=== PATIENT | female | born 1995 | race Caucasian/White ===

== ENCOUNTER 2016-09-07 21:17 | Emergency (ER) | payer OTHER ==
--- NOTE | 2016-09-07 22:49 | UCPHY ---
H & P Time Seen by Provider: 09/07/16 22:18 Patient Type: Established HPI/ROS: HPI Head injury. 21-year-old female by private vehicle. She reports that she was drinking alcohol last night. She reports that sometimes when she drinks alcohol she gets up in the middle of the night to go to the bathroom and she will get lightheaded when she stands. She reports that this has happened to her many times in the past. She reports that she became lightheaded when she stood up to go the bathroom and she stumbled and thinks she may have hit the left side of her skull just behind the left ear on a doorway corner on her bed. She reports having a bruise to this area. She denies any significant headache. No neck pain. She has not had any confusion. She denies any palpitations, chest pain, shortness of breath, loss of sensation or weakness in her extremities. No other complaints. She has no significant past medical history other that noted above. She is not on any anticoagulant or antiplatelet medications. ROS: Constitutional: No fever, no chills. No weakness. Eyes: No discharge. No changes in vision. Respiratory: No cough. No shortness of breath. Cardiac: No chest pain, no palpitations. Gastrointestinal: No abdominal pain, no vomiting, no diarrhea. Musculoskeletal: No back pain. No neck pain. No extremity pain. Skin: No rashes. As above. Neurological: No headache. No focal weakness or altered sensation. Past medical history: As above. Social history: Here by herself. Lives with her grandmother. Physical Exam: General Appearance: Alert, no distress. This patient is responding to questions appropriately and in full sentences. This patient appears well- hydrated and well-nourished. Head: Normocephalic atraumatic except for a faint area of ecchymosis just posterior to the left ear at the base of the skull. It is not significantly tender on palpation. There is no crepitus or bony step-off or deformity noted on palpation of this area.. Face: Facial bones are stable on palpation. Eyes: Pupils equal and round and reactive to light, no pallor or injection. No lid erythema or edema. ENT, Mouth: Mucous membranes moist. Dentition is intact. No malocclusion of the jaw. No tongue lacerations or abrasions. Pharynx is clear. The bilateral nasal canals are clear. No septal hematoma. No hemotympanum on speculum examination of both ears. Respiratory: There are no retractions, lungs are clear to auscultation with good air movement bilaterally. Chest wall is stable to AP and lateral palpation. Cardiovascular: Regular rate and rhythm. No murmur. Neurological: Motor sensory function is intact. Cranial nerves are normal. Cerebellar function intact. Skin: Warm and dry, no rashes. No lacerations, abrasions or contusions. Musculoskeletal: Neck is supple and nontender. The trachea is midline. No midline cervical, thoracic, lumbar or sacral tenderness on palpation. No flank tenderness on palpation. Extremities are symmetrical, full range of motion. All joints in the bilateral upper and bilateral lower extremities range without pain or impingement. No tenderness on palpation of the long bones in the bilateral upper and bilateral lower extremities. Psychiatric: No agitation. No depression. Database: EKG: Imaging: Procedures: Emergency department course: Vital signs reviewed and are normal. This patient is trauma physical exam was unremarkable as noted. I feel that significant head injury is very unlikely. She has had this happen to herself in the past. I feel that a arrhythmia/ cardiac etiology is very unlikely. She feels comfortable going home and I feel she is safe for discharge. Head injury precautions were reviewed with her. All of her questions were answered. She was discharged from Urgent Care in good condition. Differential Diagnosis: The differential diagnosis on this patient includes but is not limited to scalp contusion, minor head injury. Traumatic brain injury, epidural hematoma, subdural hematoma, traumatic subarachnoid hemorrhage, other significant traumatic injury unlikely. This represents a partial list of diagnoses considered. These considerations are based on history, physical exam, past history, reassessment and diagnostic testing. Smoking Status: Never smoked Constitutional: Initial Vital Signs Temperature (C) 37.0 C 09/07/16 21:29 Heart Rate 84 09/07/16 21:29 Respiratory Rate 14 09/07/16 21:29 Blood Pressure 121/79 H 09/07/16 21:29 O2 Sat (%) 97 09/07/16 21:29 O2 Delivery Mode Room Air Allergies/Adverse Reactions: No Known Allergies Allergy (Verified 09/07/16 21:58) Home Medications: Medication Instructions Recorded [facility] 09/07/16 Departure - Departure Disposition: Home, Routine, Self-Care Clinical Impression: Head injury Condition: Good Instructions: Head Injury (ED) Additional Instructions: Read and follow provided instructions. Follow-up with your primary care physician on Friday for re-evaluation as needed. Return to the emergency department for headache, vomiting, confusion, lightheadedness or fainting or other serious concerns. Referrals: NONE *PRIMARY CARE P,. [Primary Care Provider] - As per Instructions - PQRS PQRS Measurement: Not applicable.
[2016-09-07 23:03] VITALS: BP 120/66; PULSE 63; RESP 16; TEMP 98.8; O2SAT 98
== END 2016-09-07 22:57 | disposition home or self-care (01) ==
LOC: CED 21:17
DX: S09.90XA Unspecified injury of head, initial encounter (principal); W22.01XA Walked into wall, initial encounter; Y92.009 Unspecified place in unspecified non-institutional (private) residence as the place of occurrence of the external cause
CPT/HCPCS: 99214-PO; G0463-PO

== ENCOUNTER 2016-10-12 21:11 | Emergency (ER) | payer OTHER ==
[2016-10-12 21:24] VITALS: BP 112/69; PULSE 104; RESP 20; TEMP 99.5; O2SAT 95
--- NOTE | 2016-10-12 21:33 | UCPHY ---
H & P Patient Type: Established Chief Complaint Nursing Narrative: sore throat (01/30) with fever since early this AM. denies cough. +vomiting, some congestion. Time Seen by Provider: 10/12/16 21:22 HPI/ROS: Chief complaint sore throat, fever HPI: 21-year-old female presenting with 1 day of sore throat, subjective fevers at home. Some nasal congestion. Does have a history of strep throat in the past. Some pain with swallowing. Does not hurt to open or close her mouth. No cough. No shortness of breath. ROS: 10 point Review of Systems is negative except as noted in the HPI. Past medical history: None Medications: None Allergies: No known drug allergies Social history: Nonsmoker, positive for alcohol, positive for marijuana Physical exam: Gen: Awake, Alert, No Distress HEENT: Ears: Bilateral tympanic membranes are normal, auditory canals are normal Nose: no rhinorrhea Eyes: PERRLA, EOMI Mouth: Moist mucosa mild pharyngeal erythema without exudate or edema. No trismus. Uvula is midline Neck: Supple, no JVD, no lymphadenopathy Chest: nontender, lungs clear to auscultation Heart: S1, S2 normal, no murmur Abd: Soft, non-tender, no guarding Back: no CVA tenderness, no midline tenderness Ext: no edema, non-tender Skin: no rash Neuro: CN II-XII intact, Sensation grossly intact, Strength 5/5 in bilateral upper and lower extremities - Personal History LMP (Females 10-55): Over 28 Days Ago - Medical/Surgical History Hx Asthma: No Hx Chronic Respiratory Disease: No Hx Diabetes: No Hx Cardiac Disease: No Hx Renal Disease: No Hx Cirrhosis: No Hx Alcoholism: No Hx HIV/AIDS: No Hx Splenectomy or Spleen Trauma: No Other PMH: wisdom teeth out 3 weeks ago - Family History Significant Family History: No pertinent family hx - Social History Smoking Status: Never smoked Constitutional: Initial Vital Signs Temperature (C) 37.5 C 10/12/16 21:22 Heart Rate 104 H 10/12/16 21:22 Respiratory Rate 20 10/12/16 21:22 Blood Pressure 112/69 10/12/16 21:22 O2 Sat (%) 95 10/12/16 21:22 O2 Delivery Mode Room Air Allergies/Adverse Reactions: No Known Allergies Allergy (Verified 10/12/16 21:21) Home Medications: Medication Instructions Recorded Zyrtec 09/07/16 Control 10/12/16 Medical Decision Making - Data Points Laboratory Results: 10/12/16 21:21 Group A Strep Screen Pending Departure - Departure Disposition: Home, Routine, Self-Care Clinical Impression: Viral upper respiratory illness Condition: Good Instructions: Viral Syndrome (ED) Additional Instructions: He may alternate ibuprofen with acetaminophen as needed for fevers, chills, aches or pains. You may take anff-say-gumsahm decongestants for congestion, runny nose, or sore throat. Follow up with primary care physician in 3-4 days if symptoms are not improving. Referrals: NONE *PRIMARY CARE P,. [Primary Care Provider] - As per Instructions [facility] [Outside] - As per Instructions - PQRS PQRS Measurement: NA
== END 2016-10-12 21:44 | disposition home or self-care (01) ==
LOC: CED 21:11
DX: J06.9 Acute upper respiratory infection, unspecified (principal)
CPT/HCPCS: 87880-PO; 99214-PO; G0463-PO